=== PATIENT | female | born 1990 | race Hispanic/Latino ===

== ENCOUNTER 2017-12-09 13:18 | Inpatient (IN) | payer OTHER ==
[~2017-12-09] VITALS: Ht 160 cm; Wt 81.6 kg
[2017-12-09] MEDS ORDERED: LACTATED RINGERS 1000ML 1,000 ML IV PRN (13:55)
[2017-12-09 14:00] LABS: APPEARANCE,URINE Clear (CLEAR); BILIRUBIN,URINE Negative (NEGATIVE); COLOR,URINE Yellow (YELLOW); GLUCOSE, URINE (UA) Negative (NEGATIVE); KETONES,URINE Negative (NEGATIVE); LEUKOCYTE ESTERASE ,URINE Trace (NEGATIVE); NITRATE,URINE Negative (NEGATIVE); OCCULT BLOOD,URINE Negative (NEGATIVE); PROTEIN,URINE Negative (NEGATIVE); UROBILINOGEN,URINE 0.2 mg/dL (0.2-1.0)
[2017-12-09] MEDS ORDERED: NALOXONE HCL 0.4 MG/1 ML ML IV PRN (14:00)
[2017-12-09] MEDS ORDERED: LACTATED RINGERS 500 ML 500 ML IV PRN (14:00)
[2017-12-09] MEDS ORDERED: EPHEDRINE SULFATE 50 MG/ML AMPULE IVP PRN (14:00)
[2017-12-09] MEDS ORDERED: OXYTOCIN 10 USP UNITS/ML 20 UNIT in LACTATED RINGERS 1000ML 1,000 ML IV SCH (14:00)
[2017-12-09 14:14] LABS: BACTERIA,URINE Rare /HPF (None Seen); RBC,URINE 0-1 /HPF (0-1); SQUAMOUS EPITHELIAL CELL,UR Rare /LPF (0-2); WBC,URINE 0-1 /HPF (0-1)
[2017-12-09] MEDS ORDERED: OXYTOCIN 10 USP UNITS/ML ONE ×2 (14:33→22:59)
[2017-12-09] MEDS ORDERED: LACTATED RINGERS 1000ML 1,000 ML IV ONE ×2 (14:33→22:59)
[2017-12-09 14:34] LABS: HEMATOCRIT 37.9 % (36-48); MEAN CORPUSCULAR HEMOGLOBIN 31.1 pg (27.0-33.0); MEAN CORPUSCULAR HGB CONC 33.5 g/dL (32.0-36.0); MEAN CORPUSCULAR VOLUME 92.7 fL (79-99); NUCLEATED RED BLOOD CELLS 1.1 % (0.0-0.19); PLATELET COUNT (AUTO) 193 K/uL (130-400); RED BLOOD CELL COUNT(AUTO) 4.09 MIL/uL (4.00-5.50); RED CELL DISTRIBUTION WIDTH 16.4 % (11.0-15.5); WHITE BLOOD COUNT (AUTO) 15.2 K/uL (4.8-10.8)
[2017-12-09 15:40] LABS: BASOPHILS % (AUTO) 0.3 % (0.0-5.0); HEMATOCRIT 37.9 % (36-48); LYMPHOCYTES % (AUTO) 9.8 % (21.0-51.0); MEAN CORPUSCULAR HEMOGLOBIN 31.1 pg (27.0-33.0); MEAN CORPUSCULAR HGB CONC 33.5 g/dL (32.0-36.0); MEAN CORPUSCULAR VOLUME 92.7 fL (79-99); MONOCYTES % (AUTO) 3.3 % (3.0-13.0); NEUTROPHILS % (AUTO) 86.6 % (40.0-77.0); NUCLEATED RED BLOOD CELLS 1.1 % (0.0-0.19); PLATELET COUNT (AUTO) 193 K/uL (130-400); RED BLOOD CELL COUNT(AUTO) 4.09 MIL/uL (4.00-5.50); RED CELL DISTRIBUTION WIDTH 16.4 % (11.0-15.5); WHITE BLOOD COUNT (AUTO) 15.2 K/uL (4.8-10.8)
[2017-12-09] MEDS ORDERED: BUTORPHANOL TARTRATE 2 MG/ML IVP PRN (16:00)
[2017-12-09] MEDS ORDERED: BUTORPHANOL TARTRATE 2 MG/ML ONE (16:13)
[2017-12-09] MEDS ORDERED: LIDOCAINE HCL 1% 20 ML VIAL ONE (20:07)
[2017-12-09] MEDS ORDERED: ACETAMINOPHEN-CODEINE 300/30MG TAB PO PRN (22:30)
[2017-12-09] MEDS ORDERED: WITCH HAZEL 1 PAD TP PRN (22:30)
[2017-12-09] MEDS ORDERED: BENZOCAINE/LANOLIN/ALOE VERA 60 ML AEROSOL TP PRN (22:30)
[2017-12-09] MEDS ORDERED: DIPH,PERTUSS(ACELL),TET VAC/PF 0.5 ML VIAL IM PRN (22:30)
[2017-12-09] MEDS ORDERED: LANOLIN 30GM OINTMENT TP PRN (22:30)
[2017-12-09] MEDS ORDERED: OXYTOCIN-LR 20 UNITS/1000 ML 1,000 ML IV SCH (22:30)
[2017-12-09] MEDS ORDERED: MEASLES/MUMPS/RUBELLA VACCINE, LIVE 0.5 ML/VIAL SQ PRN (22:30)
[2017-12-09] MEDS ORDERED: ACETAMINOPHEN 325 MG TAB PO PRN (22:30)
[2017-12-09] MEDS ORDERED: HYDROCODONE/ACETAMINOPHEN 5/325 MG TAB PO PRN (22:30)
[2017-12-09] MEDS ORDERED: IBUPROFEN 800 MG TAB ONE (22:48)
[2017-12-10] VITALS (7 sets, daily range): BP systolic 105–132; BP diastolic 59–91
[2017-12-10 05:47] LABS: HEMATOCRIT 31.5 % (36-48); MEAN CORPUSCULAR HEMOGLOBIN 32.1 pg (27.0-33.0); MEAN CORPUSCULAR HGB CONC 34.3 g/dL (32.0-36.0); MEAN CORPUSCULAR VOLUME 93.6 fL (79-99); NUCLEATED RED BLOOD CELLS 1.2 % (0.0-0.19); PLATELET COUNT (AUTO) 158 K/uL (130-400); RED BLOOD CELL COUNT(AUTO) 3.36 MIL/uL (4.00-5.50); RED CELL DISTRIBUTION WIDTH 17.1 % (11.0-15.5); WHITE BLOOD COUNT (AUTO) 26.2 K/uL (4.8-10.8)
[2017-12-10] MEDS: DOCUSATE SODIUM 100 MG CAP PO SCH ×2 (09:45→21:07)
[2017-12-10] MEDS: IBUPROFEN 800 MG TAB PO PRN ×2 (09:45→18:34)
[2017-12-10 10:22] LABS: HEPATITIS Bs ANTIGEN SCREEN P Negative (Negative)
[2017-12-11 03:44] VITALS: BP 116/54
[2017-12-11 07:38] VITALS: BP 104/70
[2017-12-11 08:07] VITALS: BP 109/60
[2017-12-11] MEDS: DOCUSATE SODIUM 100 MG CAP PO SCH (09:01)
[2017-12-11] MEDS: IBUPROFEN 800 MG TAB PO PRN (09:02)
[2017-12-11 12:05] VITALS: BP 133/75
== END 2017-12-11 12:55 | disposition home or self-care (01) | DRG 775 ==
LOC: LDH 13:18 → OBSVTOIN 13:18 → WSH 12-10 00:13
PROVIDERS: ADMIT Obstetrics & Gynecology; ATTEND Obstetrics & Gynecology
PROC: 0KQM0ZZ Repair Perineum Muscle, Open Approach (ICD-10-PCS; principal; 2017-12-09)
PROC: 10E0XZZ Delivery of Products of Conception, External Approach (ICD-10-PCS; 2017-12-09)
PROC: 10907ZC Drainage of Amniotic Fluid, Therapeutic from Products of Conception, Via Natural or Artificial Opening (ICD-10-PCS; 2017-12-09)
PROC: 3E0234Z Introduction of Serum, Toxoid and Vaccine into Muscle, Percutaneous Approach (ICD-10-PCS; 2017-12-09)
PROC: 3E0134Z Introduction of Serum, Toxoid and Vaccine into Subcutaneous Tissue, Percutaneous Approach (ICD-10-PCS; 2017-12-09)
DX: O76 Abnormality in fetal heart rate and rhythm complicating labor and delivery (principal); O70.1 Second degree perineal laceration during delivery; O77.0 Labor and delivery complicated by meconium in amniotic fluid; Z37.0 Single live birth; Z3A.38 38 weeks gestation of pregnancy; Z23 Encounter for immunization; Z88.2 Allergy status to sulfonamides
CPT/HCPCS: 36415; 76815; 81001; 85025; 85027; 86592; 86850; 86900; 86901; 87340; 90715; A4314; J0595; J2590; J7120